=== PATIENT | male | born 1930 | race Caucasian/White ===

== ENCOUNTER 2017-02-03 07:57 | Outpatient (CLI) | payer MEDICARE, OTHER ==
[2017-02-03 08:26] LABS: #Basophils 0.1 thou/uL (0.0-0.2); #Lymphocytes 1.2 thou/uL (1.20-3.40); #Monocytes 0.5 thou/uL (0.11-0.59); #Neutrophils 3.4 thou/uL (1.40-6.50); %Basophils 1.2 % (0.0-1.0); %Eosinophils 0.7 % (0.0-10.0); %Lymphocytes 22.7 % (21.0-51.0); %Monocytes 10.2 % (0.0-10.0); %Neutrophils 65.3 % (42.0-75.0); Hemoglobin 12.5 g/dL (14.0-18.0); Mean Corpuscular HGB CONC 33.2 g/dL (32.0-36.0); Mean Corpuscular Hemoglobin 31.2 pg (27.0-31.0); Mean Corpuscular Volume 94.1 fl (80.0-94.0); Mean Platelet Volume 7.2 fL (7.4-10.4); Platelet Count 126 thou/uL (130-400); RBC Distribution Width 12.6 % (11.5-14.5); White Blood Cell (WBC) Count 5.2 thou/uL (4.8-10.8)
[2017-02-03 08:37] LABS: Hemoglobin A1c 7.1 % (4.0-6.0)
[2017-02-03 08:44] LABS: ALT (SGPT) 21 U/L (0-55); AST (SGOT) 23 U/L (5-34); Albumin 4.4 g/dL (3.4-4.8); Alkaline Phosphatase 57 U/L (40-150); Anion Gap 15 mmol/L (10-20); BUN (Urea Nitrogen) 23 mg/dL (8.4-25.7); Bilirubin, Total 0.5 mg/dL (0.2-1.2); Calc. Creatinine Clearance 0 mL/min (70-130); Calcium 9.8 mg/dL (7.8-10.44); Carbon Dioxide 27 mmol/L (23-31); Cardiac Risk 3.6 (Less than 4.5); Chloride 103 mmol/L (98-107); Cholesterol 132 mg/dL (< 200 Desired); Estimated GFR-MDRD 77; Globulin 2.4 g/dL (2.4-3.5); Glucose 150 mg/dL (83-110); HDL Cholesterol 37 mg/dL (>60 Neg Risk); LDL Cholesterol, Calculated 74 mg/dL; Potassium 4.1 mmol/L (3.5-5.1); Protein, Total 6.8 g/dL (5.8-8.1); Sodium 141 mmol/L (136-145); Triglycerides 107 mg/dL (Less than 150)
[2017-02-03 18:08] LABS: Creatinine, Urine 85.56 mg/dL (63-166); Microalbumin Urine 3.9 mg/dL (0.5-50.0); Microalbumin/Creat Ratio 45.6 mg/g (Less than 30)
== END 2017-02-03 07:58 ==
LOC: MADLABBHPM 07:57
PROVIDERS: ATTEND Family Medicine
DX: E11.9 Type 2 diabetes mellitus without complications (principal)
CPT/HCPCS: 36415; 80053; 80061; 82043; 83036; 85025

== ENCOUNTER 2018-04-11 11:44 | Outpatient (CLI) | payer MEDICARE, OTHER ==
--- NOTE | 2018-04-11 14:16 | RAD ---
4 VIEWS RIGHT WRIST: Date: 04/11/18 HISTORY: Right wrist pain after a fall last night. FINDINGS: Corticated osseous density is seen distal to the ulnar styloid process, which may represent either re mote avulsion injury versus accessory center of ossification. There is a lucency seen within the prox imal pole of the capitate bone, which may represent intraosseous ganglion or small subchondral cyst. No fracture or dislocation is seen involving the right wrist. 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 Dense vascular calcifications are seen at the volar aspect of the wrist and dist al forearm. IMPRESSION: No acute osseous abnormality of the right wrist. If patient's symptoms/pain persists, follow-up imagi ng in 4-7 days is recommended to exclude the possibility of an occult fracture. POS: JAMES
== END 2018-04-11 11:45 | disposition home or self-care (01) ==
LOC: MADRAD 11:44
PROVIDERS: ATTEND Family Medicine
DX: S69.91XA Unspecified injury of right wrist, hand and finger(s), initial encounter (principal)

== ENCOUNTER 2018-12-12 09:42 | Emergency (ER) | payer MEDICARE, OTHER ==
--- NOTE | 2018-12-12 12:08 | RAD ---
LEFT ANKLE THREE VIEWS: Date: 12-12-18 Comparison: None. History: Pain. No history of trauma. FINDINGS: There is mild soft tissue swelling seen medial to the talus just distal to the tip of the medial mall eolus. There is extensive atherosclerotic calcification posterior to the visualized tibia and along t he plantar aspect of the foot. No displaced fracture or dislocation is seen. IMPRESSION: No acute osseous abnormality. Additional findings as described above. POS: OFF
== END 2018-12-12 13:05 | disposition short-term general hospital (02) ==
LOC: MADERS 09:42
DX: M79.89 Other specified soft tissue disorders (principal); E11.9 Type 2 diabetes mellitus without complications; I25.10 Atherosclerotic heart disease of native coronary artery without angina pectoris; I10 Essential (primary) hypertension; Z79.82 Long term (current) use of aspirin; Z79.899 Other long term (current) drug therapy; Z79.84 Long term (current) use of oral hypoglycemic drugs; Z79.01 Long term (current) use of anticoagulants; Z79.4 Long term (current) use of insulin
CPT/HCPCS: 36415; 85379

== ENCOUNTER 2019-06-10 16:21 | Emergency (ER) | payer MEDICARE, OTHER ==
--- NOTE | 2019-06-10 17:05 | CT ---
CT Brain WO Con: 06/10/2019 4:38 PM CLINICAL HISTORY: Fall. Head injury. COMPARISON: None. FINDINGS: Hemorrhage: Acute subdural hematoma overlies the right frontal lobe, thickness measuring 6-7 mm. Ventricular system: Normal in size and morphology for the patient's age. Cerebral parenchyma: Microvascular ischemic disease Midline shift: None. Mass: No mass effect. Calvarium: Normal. Visualized Paranasal sinuses: Clear. IMPRESSION: Acute lateral right frontal convexity subdural hematoma. Recommend neurosurgical consultation. Telephone call to ER physician Bo Morrow placed at [id number] hours.
[2019-06-10 17:13] LABS: #Basophils 0.1 thou/uL (0.0-0.2); #Monocytes 0.9 thou/uL (0.11-0.59); #Neutrophils 8.5 thou/uL (1.40-6.50); %Basophils 0.6 % (0.0-1.0); %Eosinophils 0.5 % (0.0-10.0); %Lymphocytes 9.4 % (21.0-51.0); %Monocytes 8.7 % (0.0-10.0); %Neutrophils 80.9 % (42.0-75.0); Hemoglobin 12.2 g/dL (14.0-18.0); Mean Corpuscular HGB CONC 32.6 g/dL (32.0-36.0); Mean Corpuscular Hemoglobin 29.2 pg (27.0-31.0); Mean Corpuscular Volume 89.4 fL (78.0-98.0); Mean Platelet Volume 5.3 fL (7.4-10.4); Platelet Count 175 thou/uL (130-400); White Blood Cell (WBC) Count 10.5 thou/uL (4.8-10.8)
[2019-06-10] MEDS ORDERED: HUM PROTHROMBIN CPLX(PCC)4FACT 1,000 UNIT VIAL ONE (17:17)
--- NOTE | 2019-06-10 17:18 | CT ---
CT Cervical Spine WO Con Indication: Pain/Injury COMPARISON: None FINDINGS: Acute fracture/subluxation: No acute fracture. Trace spondylolisthesis of C7-T1 present which may be degenerative, given associated, prominent facet arthropathy. Spinal alignment: Mild spondylolisthesis, as above Vertebral body heights: Mild degenerative height loss, multilevel Cervical spine degenerative change: Severe multilevel degenerative change IMPRESSION: No acute osseous abnormality.
[2019-06-10] MEDS ORDERED: Sterile Water 100 ML ONE (17:23)
[2019-06-10 17:25] LABS: INR-International Normal Ratio 1.2; PTT 28.7 SEC (22.9-36.1); Prothrombin Time 14.7 SEC (12.0-14.7)
[2019-06-10 17:32] LABS: ALT (SGPT) 16 U/L (8-55); AST (SGOT) 16 U/L (5-34); Albumin 4.3 g/dL (3.4-4.8); Alkaline Phosphatase 53 U/L (40-150); Anion Gap 17 mmol/L (10-20); BUN (Urea Nitrogen) 21 mg/dL (8.4-25.7); Bilirubin, Total 0.4 mg/dL (0.2-1.2); Calc. Creatinine Clearance 0 mL/min (70-130); Calcium 9.4 mg/dL (7.8-10.44); Carbon Dioxide 27 mmol/L (23-31); Chloride 101 mmol/L (98-107); Estimated GFR-MDRD 71; Globulin 2.8 g/dL (2.4-3.5); Glucose 109 mg/dL (83-110); Potassium 3.8 mmol/L (3.5-5.1); Protein, Total 7.1 g/dL (5.8-8.1); Sodium 141 mmol/L (136-145)
== END 2019-06-10 18:50 | disposition short-term general hospital (02) ==
LOC: MADERS 16:21
DX: S06.5X0A Traumatic subdural hemorrhage without loss of consciousness, initial encounter (principal); E11.9 Type 2 diabetes mellitus without complications; I25.10 Atherosclerotic heart disease of native coronary artery without angina pectoris; I10 Essential (primary) hypertension; Z79.82 Long term (current) use of aspirin; Z79.899 Other long term (current) drug therapy; Z79.4 Long term (current) use of insulin; W05.0XXA Fall from non-moving wheelchair, initial encounter
CPT/HCPCS: 36415; 70450; 72125; 80053; 85025; 85610; 85730; 96374; C9132